=== PATIENT | male | born 1980 | race Caucasian/White ===

== ENCOUNTER 2020-10-26 09:12 | Outpatient (REF) | payer OTHER, SELFPAY ==
[2020-10-27 13:27] LABS: Anion Gap 11 (12-20); Blood Urea Nitrogen 9 mg/dL (9-16); Calcium 9.1 mg/dL (8.4-10.2); Carbon Dioxide 30 mmol/L (22-29); Chloride 102 mmol/L (96-108); Cholesterol 179 mg/dL; Estimated Glomerular Filt Rate > 60; Glucose Random 86 mg/dL (60-115); HDL Cholesterol 42 mg/dL; LDL Cholesterol Calculated 116 mg/dl; Potassium 4.2 mmol/L (3.3-5.1); Sodium 139 mmol/L (135-145); Triglycerides 105 mg/dL
== END 2020-10-26 09:13 | disposition home or self-care (01) ==
LOC: HO.LAB 09:12
PROVIDERS: PCP Internal Medicine; Visit Provider Internal Medicine
DX: J45.909 Unspecified asthma, uncomplicated (principal); R53.83 Other fatigue; Z79.899 Other long term (current) drug therapy; Z87.891 Personal history of nicotine dependence
CPT/HCPCS: 36415; 80048; 80061; 82550

== ENCOUNTER 2024-12-03 16:41 | Outpatient (REF) | payer OTHER, SELFPAY ==
[2024-12-03 17:10] LABS: MANUAL DIFF FLAG NO
[2024-12-03 18:37] LABS: Basophils Absolute Auto 0.1 X10*3/uL (0.0-0.2); Basophils Percent Auto 0.7 % (0-2); Eosinophils Absolute Auto 0.1 X10*3/uL (0.0-0.4); Hemoglobin 14.8 g/dl (14.0-18.0); Imm Gran Abs Auto 0.02 X10*3/uL (0.00-0.03); Imm Gran Pct Auto 0.3 % (0.0-0.4); Lymphocytes Absolute Auto 2.3 X10*3/uL (1.2-4.9); Lymphocytes Percent Auto 30.9 % (20-40); Mean Corpuscular HGB Conc 32.9 g/dl (31.0-36.0); Mean Corpuscular Hemoglobin 30.2 pg (27.0-33.0); Mean Corpuscular Volume 91.8 fL (80.0-98.0); Mean Platelet Volume 11.7 fL (9.4-12.4); Monocytes Absolute Auto 0.4 X10*3/uL (0.1-1.2); Monocytes Percent Auto 5.6 % (2-11); Neutrophils Absolute Auto 4.5 x10*3/uL (2.0-8.3); Neutrophils Percent Auto 61.5 % (45-73); Platelet Count 254 X10*3/uL (160-400); Red Cell Distribution Width 12.8 % (11.0-16.0); White Blood Count 7.3 X10*3/uL (4.8-10.8)
[2024-12-19 11:39] LABS: Class Cat Dander 1; Class Cockroach 0; Class Dermatophagoides farinae 2; Class Mouse Urine Protein 0; D002 - IgE D farinae 1.02; E001 - IgE Cat Dander 0.39; E072-IgE Mouse Urine <0.10; I006-IgE Cockroach, German <0.10
[2024-12-19 11:41] LABS: Class Alternaria alternata 0; Class Aspergillus fumigatus 0; Class Cladosporium herbarum 0; Class Dog Dander 0/1; Class Timothy Grass 2; E005 - IgE Dog Dander 0.28; G006 - IgE Timothy Grass 2.54; M002 - IgE Cladosporium herbar <0.10; M003 - IgE Aspergillus fumigat <0.10; M006 - IgE Alternaria alternat <0.10
[2024-12-19 11:42] LABS: Class Cottonwood 0/1; Class Mountain Cedar 0; Class Oak 2; Class Sycamore 0; Class Walnut Tree 0; T006 - IgE Cedar, Mountain <0.10; T007 - IgE Oak, White 0.61; T010 - IgE Walnut <0.10; T011 - IgE Maple Leaf Sycamore <0.10; T014 - IgE Cottonwood 0.26
[2024-12-19 11:43] LABS: Class Bermuda Grass 2; Class Birch 2; Class Derm. pterony 1; Class Penicillium crysogenum 0; Class White Ash 0; Class White Mulberry 0; D001 IgE D pteronyssinus 0.56; G002 IgE Bermuda Grass 3.21; M001 IgE Penicillium chrysogen <0.10; T003 IgE Common Silver Birch 1.02; T015 - IgE Ash, White <0.10; T070 - IgE White Mulberry <0.10
[2024-12-19 11:44] LABS: Class Elm 0/1; Class Maple Box Elder 0; T001 IgE Maple/Box Elder <0.10; T008 IgE Elm, American 0.16
== END 2024-12-03 16:42 | disposition home or self-care (01) ==
LOC: HO.LAB 16:41
PROVIDERS: PCP Internal Medicine; Visit Provider Internal Medicine
DX: J45.901 Unspecified asthma with (acute) exacerbation (principal); J30.9 Allergic rhinitis, unspecified
CPT/HCPCS: 36415; 82785; 85025; 86003